=== PATIENT | female | born 1950 | race Caucasian/White ===

== ENCOUNTER 2017-04-20 18:37 | Inpatient (IN) | payer MEDICAID, MEDICARE ==
--- NOTE | 2017-04-20 19:20 | ED Physician Chart ---
ED Chief Complaint/HPI - Patient Information Date Seen:: 04/20/17 Time Seen:: 18:42 Chief Complaint:: confusion History of Present Illness:: THIS IS A 66 YO FEMALE SENT TO ER AN EVALUATION AND TREATMENT FOR HER PERIODS OF CONFUSION. SHE HAD COPD, HTN, ARTHRITIS, AND CVA. Allergies:: Allergies Allergy/AdvReac Type Severity Reaction Status Date / Time carbamazepine [From Tegretol] Allergy Verified 04/20/17 18:43 lactose Allergy Verified 04/20/17 18:44 Vitals:: Vital Signs - 8 hr 04/20/17 18:39 Temp 97.8 F HR 74 RR 16 BP 117/65 O2 Sat % 98 Historian:: Medical Records Review:: Nurse's Note Reviewed, Old Chart Reviewed, Transfer documents Reviewed ED Review of Systems - Review of Systems General/Constitutional: No fever, No chills, No weight loss, No weakness, No diaphoresis, No edema, No loss of appetite, Other (THIS PATIENT IS TOO CONFUSED TO GIVE A REVIEW OF SYSTEMS) Skin: No skin lesions, No rash, No bruising Head: No headache, No light-headedness Eyes: No loss of vision, No pain, No diplopia ENT: No earache, No nasal drainage, No sore throat, No tinnitus Neck: No neck pain, No swelling, No thyromegaly, No stiffness, No mass noted Cardio Vascular: No chest pain, No palpitations, No PND, No orthopnea, No edema Pulmonary: No SOB, No cough, No sputum, No wheezing GI: No nausea, No vomiting, No diarrhea, No pain, No melena, No hematochezia, No constipation, No hematemesis G/U: No dysuria, No frequency, No hematuria Musculoskeletal: No bone or joint pain, No back pain, No muscle pain Endocrine: No polyuria, No polydipsia Psychiatric: No prior psych history, No depression, No anxiety, No suicidal ideation Hematopoietic: No bruising, No lymphadenopathy Allergic/Immuno: No urticaria, No angioedema Neurological: No syncope, No focal symptoms, No weakness, No paresthesia, No headache, No seizure, No dizziness, No confusion, No vertigo ED Past Medical History - Past Medical History Obtainable: Yes Past Medical History: HTN, Asthma/COPD, CVA/TIA, Dyslipidemia, Arthritis, Dementia Family History: None Social History: Smoker, No Alcohol, No Drug Use, Care Facility Surgical History: other (SHOULDER SURGERY) Psychiatricy History: Dementia Family Medical History - Family Member Father History Unknown: Yes Ethnicity: Non- Living Status: ED Physical Exam - Physical Examination General/Constitutional: Awake, Well-developed, well-nourished, Alert, No distress, GCS 15, Non-toxic appearing, Ambulatory Other Gen/Cons comments:: CONFUSED Head: Atraumatic Eyes: Lids, conjuctiva normal, PERRL, EOMI Skin: Nl inspection, No rash, No skin lesions, No ecchymosis, Well hydrated, No lymphadenopathy ENMT: External ears, nose nl, Nasal exam nl, Lips, teeth, gums nl Neck: Nontender, Full ROM w/o pain, No JVD, No nuchal rigidity, No bruit, No mass, No stridor Respiratory: Nl effort/Exclusion Other Respiratory comments:: BILATERAL DECREASE EXCURSION OF THE DIAPHRAGMS WITH BILATERAL WHEEZING AND RHONCHI Cardio Vascular: No murmur, gallop, rubs, NL S1 S2 Other Cardio Vascular comments:: SLOW RATE 44 TO 50 RATE GI: No tenderness/rebounding/guarding, No organomegaly, No hernia, Normal BS's, Nondistended, No mass/bruits, No McBurney tenderness : No CVA tenderness Extremities: No tenderness or effusion, Full ROM, normal strength in all extremities, No edema, Normal digits & nails Neuro/Psych: Alert/oriented, DTR's symmetric, Normal sensory exam, Normal motor strength, Judgement/insight normal, Mood normal, Normal gait, No focal deficits Misc: normal gait, Normal back, No paraspinal tenderness ED Labs/Radiology/EKG Results - Lab Results Results: Abnormal Lab Results 04/20/17 04/20/17 04/20/17 19:15 19:15 19:15 WBC 9.6 RBC 3.66 L Hgb 11.5 L Hct 34.4 L MCV 94.1 MCH 31.6 H MCHC Differential 33.5 RDW 13.2 Plt Count 186 MPV 9.5 Neutrophils % 63.8 Lymphocytes % 18.5 L Monocytes % 13.6 H Eosinophils % 3.9 Basophils % 0.2 Sodium 137 Potassium 2.8 L* Chloride 105 Carbon Dioxide 26.6 Anion Gap 8.2 BUN 11 Creatinine 0.7 Est GFR ( Amer) > 60.0 Est GFR (Non-Af Amer) > 60.0 BUN/Creatinine Ratio 15.7 Glucose 90 Calcium 8.6 Total Bilirubin 0.2 L AST 11 L ALT 6 L Alkaline Phosphatase 58 Troponin I 0.01 Total Protein 5.8 L Albumin 3.4 L Globulin 2.4 Albumin/Globulin Ratio 1.4 - Radiology Results Results: CHEST X-RAY = FIBROTIC LUNGS - EKG Interpretations EKG Time:: 19:09 Rate & Rhythm: RATE =51,SINUS EMERITA [place]: RIGHT AXIS ED Assessment - Assessment General Assessment: SYMPTOMATIC BRADYCARDIA ED Septic Shock - . Is Septic Shock (SBP<90, OR Lactate>4 mmol\L) present?: No - <6hrs of presentation: Vital Signs: Vital Signs - 8 hr 04/20/17 18:39 Temp 97.8 F HR 74 RR 16 BP 117/65 O2 Sat % 98 ED Reassessment (Disposition) - Reassessment Reassessment Condition:: Unchanged - Diagnosis Diagnosis:: SYMPTOMATIC BRADYCARDIA HYPOKALEMIA ANEMIA FIBROTIC LUNG DISEASE - Patient Disposition Discharge/Transfer:: Acute Care w/in this hosp Admitted to:: Telemetry Admitting Medical Physician:: Tal Dooley Condition at Disposition:: Unchanged ED Discharge Plan - Patient Disposition Admit/Discharge/Transfer: Acute Care w/in this hosp Condition at Disposition: Unchanged Instructions: Psychosis
[2017-04-20 19:25] LABS: % BASOPHILS 0.2 % (0.0-2.0); % EOSINOPHILS 3.9 % (0.0-5.0); % LYMPHOCYTES 18.5 % (20.0-50.0); % MONOCYTES 13.6 % (2.0-10.0); % NEUTROPHILS 63.8 % (40.0-80.0); HEMATOCRIT 34.4 % (41.0-60); HEMOGLOBIN 11.5 gm/dL (12-16); MEAN CELL VOLUME 94.1 fl (81-100); MEAN CORPUSCULAR HEMOGLOBIN 31.6 pg (27.0-31.0); MEAN CORPUSCULAR HGB CONC 33.5 pg (28.0-36.0); MEAN PLATELET VOLUME 9.5 fl; NEUTROPHILE ABSOLUTE 6.1 Th/cmm (1.8-8.0); PLATELET COUNT 186 Th/cmm (150-400); RED BLOOD COUNT 3.66 Mil/cmm (3.80-5.20); RED CELL DISTRIBUTION WIDTH 13.2 % (11.5-20.0); WHITE BLOOD COUNT 9.6 Th/cmm (4.8-10.8)
[2017-04-20 19:37] LABS: ALB/GLOB RATIO 1.4 (1.0-1.8); ALKALINE PHOSPHATASE 58 U/L (34-104); ANION GAP 8.2 (7.0-16.0); BILIRUBIN,TOTAL 0.2 mg/dL (0.3-1.0); BUN - UREA NITROGEN 11 mg/dL (7-25); BUN/CREATININE RATIO 15.7; CALCIUM SERUM 8.6 mg/dL (8.6-10.3); CARBON DIOXIDE 26.6 mEq/L (21.0-31.0); CHLORIDE 105 mEq/L (98-107); CREATININE - SERUM 0.7 mg/dL (0.6-1.2); GLUCOSE 90 mg/dL (70-105); SGOT 11 U/L (13-39); SGPT/ALT 6 U/L (7-52); SODIUM SERUM 137 mEq/L (136-145)
[2017-04-20] MEDS ORDERED: Potassium Chloride Elixir 20 mEq /15 mL UDC PO ONE ×2 (19:47→19:48)
[2017-04-20 19:49] LABS: POTASSIUM SERUM 2.8 mEq/L (3.5-5.1)
[2017-04-20] MEDS ORDERED: Potassium Chloride Elixir 20 mEq /15 mL UDC ONE (19:51)
[2017-04-20] MEDS ORDERED: Albuterol/Ipratropium Neb 3 ML AERS HHN PRN ×2 (21:41→21:46)
[2017-04-20] MEDS ORDERED: Hydrocodone/APAP 5mg/325mg Tab PO PRN (21:41)
[2017-04-21] MEDS ORDERED: Albuterol/Ipratropium Neb 3 ML AERS HHN SCH
[2017-04-21] MEDS: Albuterol/Ipratropium Neb 3 ML AERS HHN SCH ×4 (00:06→19:12)
[2017-04-21 05:00] VITALS: BP 141/72
[2017-04-21 06:48] LABS: % BASOPHILS 0.2 % (0.0-2.0); % EOSINOPHILS 0.2 % (0.0-5.0); % LYMPHOCYTES 13.4 % (20.0-50.0); % MONOCYTES 5.1 % (2.0-10.0); % NEUTROPHILS 81.1 % (40.0-80.0); HEMOGLOBIN 12.7 gm/dL (12-16); MEAN CELL VOLUME 94.6 fl (81-100); MEAN CORPUSCULAR HEMOGLOBIN 30.9 pg (27.0-31.0); MEAN CORPUSCULAR HGB CONC 32.6 pg (28.0-36.0); MEAN PLATELET VOLUME 11.5 fl; NEUTROPHILE ABSOLUTE 4.8 Th/cmm (1.8-8.0); RED BLOOD COUNT 4.12 Mil/cmm (3.80-5.20); RED CELL DISTRIBUTION WIDTH 13.3 % (11.5-20.0)
[2017-04-21 06:51] LABS: HEMATOCRIT 38.9 % (41.0-60); PLATELET COUNT 234 Th/cmm (150-400); WHITE BLOOD COUNT 5.9 Th/cmm (4.8-10.8)
[2017-04-21 07:20] LABS: ANION GAP 9.1 (7.0-16.0); BUN - UREA NITROGEN 11 mg/dL (7-25); BUN/CREATININE RATIO 18.3; CALCIUM SERUM 8.8 mg/dL (8.6-10.3); CARBON DIOXIDE 25.6 mEq/L (21.0-31.0); CHLORIDE 105 mEq/L (98-107); CREATININE - SERUM 0.6 mg/dL (0.6-1.2); GLUCOSE 134 mg/dL (70-105); POTASSIUM SERUM 3.7 mEq/L (3.5-5.1); SODIUM SERUM 136 mEq/L (136-145)
[2017-04-21] MEDS ORDERED: Potassium Chloride 20 mEq ER Tab PO SCH (09:00)
[2017-04-21] MEDS ORDERED: VALSARTAN 160 MG PO SCH (09:00)
[2017-04-21] MEDS ORDERED: Pantoprazole 40 mg EC Tab PO SCH (09:00)
[2017-04-21] MEDS ORDERED: FERROUS SULFATE PO SCH (09:00)
--- NOTE | 2017-04-21 09:09 | Diagnostic Imaging Report ---
CHEST X-RAY: AP view INDICATION: Cough COMPARISON: None FINDINGS: Increased interstitial lung markings are noted. There is no focal consolidation or pleural effusions The heart is normal in size. Degenerative changes of the spine are seen with scoliosis. Degenerative changes and Deformity of the bilateral shoulders and humeral heads are noted. IMPRESSION: Increased interstitial lung markings favoring chronic lung changes. No focal consolidation or evidence of romeo CHF. Degenerative changes.
[2017-04-21] MEDS: Potassium Chloride 20 mEq ER Tab PO SCH (09:41)
[2017-04-21] MEDS: Pantoprazole 40 mg EC Tab PO SCH (09:41)
[2017-04-21] MEDS: Ferrous Sulfate 325 MG TAB PO SCH ×2 (09:42→16:35)
--- NOTE | 2017-04-21 11:39 | History & Physical ---
ADMIT DATE: 04/21/2017 PHYSICIAN REQUESTING CONSULTATION: Dr. Greg Pritchard. CHIEF COMPLAINT: Confusion and agitation. HISTORY OF PRESENT ILLNESS: This patient is a 66-year-old woman, resident of ____ [place]. The patient has been noted to be very confused and getting easily agitated and hence the patient has been referred to the hospital. At the time of the evaluation, the patient is reported noted to be very lethargic and her potassium and WBC noted to be very low. The patient is admitted to the medical unit for stabilization. A psychiatric consultation is called to address the issue of the confusion and agitation. Chart is reviewed. The patient is interviewed. Review of the chart indicated that the patient has been on Paxil 20 mg on a daily basis and mirtazapine 15 mg at bedtime. With Risperdal 0.5 mg at bedtime and the patient is also on Trileptal and gabapentin. The patient at this time is noted to be very irritable and angry and is stating that she cannot recall anything and is not able to provide much of information, most of the information has to be obtained by reviewing the chart and talking to the staff members. The patient has been very upset for being in here. PAST PSYCHIATRIC HISTORY: Details are not known. MEDICAL HISTORY: Significant for the patient having history of COPD, hypercholesterolemia, arthritis, GERD and hypertension. The patient is being treated with Risperdal and Paxil at this time. SUBSTANCE ABUSE HISTORY: None. SOCIAL HISTORY: The patient is reporting that she has a daughter and she wants someone to inform the daughter. MENTAL STATUS EXAMINATION: The patient is a 66-year-old, looking older than her stated age, thin built, superficially cooperative. Eye contact is poor. Mood is noted to be irritable. Affect is constricted. The patient is getting easily frustrated. Insight and judgment at this time are noted to be impaired. Impulse control is noted to be poor. The patient is not fully aware that she is in the hospital in [place]. The patient, however, notes that she is 66 years of age, attention span and concentration are noted to be poor at this time. The patient's coping skills are noted to be very poor suicidal or homicidal ideation could not be elicited at this time. DIAGNOSTIC IMPRESSION: Major depressive disorder, recurrent and moderate. PLAN: To continue the patient with the Paxil and then discontinue the Remeron and decrease the dose on the Ativan and follow the patient with the supportive therapy. Thank you, Dr. Pritchard, for allowing me to participate in the care of the patient. JOB# [id number]
[2017-04-21] MEDS: Hydrocodone/APAP 5mg/325mg Tab PO PRN ×2 (14:05→21:50)
[2017-04-21] MEDS: cefTRIAXone 1 GM in Sodium Chloride 0.9% 50 ML IV SCH (18:34)
--- NOTE | 2017-04-21 21:13 | Consultation ---
DATE OF CONSULTATION: 04/21/2017 SUBJECTIVE: The patient is a 66-year-old male, who is coming from [place], has been noted to be confused, getting easily agitated and hence the patient has been referred to the hospital. This patient has been referred to be lethargic. Her potassium is relatively low and white blood cell noted to be low. This patient had very poor oral intake and nutrition for the last few days because of significant degree of agitation that this patient had. This patient is being seen in consultation because of electrolyte abnormality in the form of hypokalemia that this patient has. PAST MEDICAL HISTORY: Significant with the of COPD, hypercholesterolemia, arthritis, gastroesophageal reflux and hypertension. He has been previously on medications of Risperdal and Paxil at the present time. Substance abuse is negative. SOCIAL HISTORY: Noncontributory in the presence of the daughter who wants to be informed about the condition of her mother. OBJECTIVE: VITAL SIGNS: Blood pressure 132/74, temperature 97.8, pulse rate 71, and respiratory rate of 18. Lethargic. Appears to communicate at the present time. CHEST: Clear to auscultation. HEART: Regular sinus. ABDOMEN: Soft. Scaphoid There is no evidence of edema. EXTREMITIES: No edema both lower extremities. Dystrophic changes of no extremities were noted. LABORATORY DATA: This patient's white cells count is 5900, 12.7 hemoglobin and hematocrit of 38.3, and platelets of this patient is 234,000. 136 sodium, potassium 3.7, chloride 105, CO2 of 25.6, anion gap of 9.1, BUN of 11, creatinine of 0.6, glucose 134, calcium 8.3. Carbamazepine level is 2.0. Bilirubin of this patient is 0.2. Liver profile is with normal limits, although she has significant degree lower AST, ALT, and alkaline phosphatase. ASSESSMENT AND PLAN: 1. Hypokalemia secondary to inadequate oral intake of this patient. 2. Anorexia, significant in this patient with the patient having relatively lower albumin of 3.4, hypoalbuminemia might be related to nutritional intake of this patient, which is very poor. Encouraged nutrition, protein supplementation, while she is in the hospital. [facility]# [id number]
[2017-04-21] MEDS: Atorvastatin Calcium 10 MG TAB PO SCH (21:34)
[2017-04-22] MEDS: Albuterol/Ipratropium Neb 3 ML AERS HHN SCH ×5 (01:54→19:06)
[2017-04-22] MEDS: Pantoprazole 40 mg EC Tab PO SCH (09:45)
[2017-04-22] MEDS: Ferrous Sulfate 325 MG TAB PO SCH ×2 (09:45→16:20)
[2017-04-22] MEDS: Potassium Chloride 20 mEq ER Tab PO SCH (09:46)
[2017-04-22] MEDS: cefTRIAXone 1 GM in Sodium Chloride 0.9% 50 ML IV SCH (17:26)
--- NOTE | 2017-04-22 20:26 | Infectious Disease Prog Note ---
Infectious Disease Subjective - Review of Systems Service Date: 04/22/17 Subjective: cc uti hpi- pt on iv bax bp high norvasc startedros nofver o/e vs chest claer abd soft ext pulse dx debility uti rocephin Infectious Disease Objective - Results Result Diagrams: 04/21/17 06:05 04/21/17 06:05 Recent Labs: Laboratory Last Values WBC 5.9 Th/cmm (4.8-10.8) D 04/21/17 06:05 RBC 4.12 Mil/cmm (3.80-5.20) 04/21/17 06:05 Hgb 12.7 gm/dL (12-16) 04/21/17 06:05 Hct 38.9 % (41.0-60) L D 04/21/17 06:05 MCV 94.6 fl (81-100) 04/21/17 06:05 MCH 30.9 pg (27.0-31.0) 04/21/17 06:05 MCHC Differential 32.6 pg (28.0-36.0) 04/21/17 06:05 RDW 13.3 % (11.5-20.0) 04/21/17 06:05 Plt Count 234 Th/cmm (150-400) D 04/21/17 06:05 MPV 11.5 fl 04/21/17 06:05 Neutrophils % 81.1 % (40.0-80.0) H 04/21/17 06:05 Lymphocytes % 13.4 % (20.0-50.0) L 04/21/17 06:05 Monocytes % 5.1 % (2.0-10.0) 04/21/17 06:05 Eosinophils % 0.2 % (0.0-5.0) 04/21/17 06:05 Basophils % 0.2 % (0.0-2.0) 04/21/17 06:05 Sodium 136 mEq/L (136-145) 04/21/17 06:05 Potassium 3.7 mEq/L (3.5-5.1) 04/21/17 06:05 Chloride 105 mEq/L (98-107) 04/21/17 06:05 Carbon Dioxide 25.6 mEq/L (21.0-31.0) 04/21/17 06:05 Anion Gap 9.1 (7.0-16.0) 04/21/17 06:05 BUN 11 mg/dL (7-25) 04/21/17 06:05 Creatinine 0.6 mg/dL (0.6-1.2) 04/21/17 06:05 Est GFR ( Amer) > 60.0 ml/min (>90) 04/21/17 06:05 Est GFR (Non-Af Amer) > 60.0 ml/min 04/21/17 06:05 BUN/Creatinine Ratio 18.3 04/21/17 06:05 Glucose 134 mg/dL (70-105) H 04/21/17 06:05 Calcium 8.8 mg/dL (8.6-10.3) 04/21/17 06:05 Total Bilirubin 0.2 mg/dL (0.3-1.0) L 04/20/17 19:15 AST 11 U/L (13-39) L 04/20/17 19:15 ALT 6 U/L (7-52) L 04/20/17 19:15 Alkaline Phosphatase 58 U/L (34-104) 04/20/17 19:15 Troponin I 0.01 ng/mL (0.01-0.05) 04/20/17 19:15 Total Protein 5.8 gm/dL (6.0-8.3) L 04/20/17 19:15 Albumin 3.4 gm/dL (3.7-5.3) L 04/20/17 19:15 Globulin 2.4 gm/dL 04/20/17 19:15 Albumin/Globulin Ratio 1.4 (1.0-1.8) 04/20/17 19:15 TSH 2.35 uIU/ml (0.34-5.60) 04/20/17 19:15 Carbamazepine < 2.0 ug/ml (4.0-12.0) L 04/20/17 19:15 - Physical Exam Vitals and I&O: Vital Signs Temp 98.0 F 04/22/17 20:00 Pulse 66 04/22/17 20:00 Resp 18 04/22/17 20:00 BP 160/76 04/22/17 20:00 Pulse Ox 95 04/22/17 20:00 Intake & Output 04/22/17 04/22/17 04/23/17 06:59 18:59 06:59 Intake Total 400 500 Output Total 500 Balance 400 0 Weight (lbs) 46.266 kg 46.266 kg Intake: Oral 400 500 Output: Urine 500 Other: # Voids 3 # Bowel Movements 9 6 Active Medications: Current Medications Acetaminophen/Hydrocodone Bitart ([place] 5mg/325mg) 1 tab PO TID PRN PRN Reason: Pain (Mild) Stop: 06/19/17 21:57 Last Admin: 04/21/17 21:50 Dose: 1 tab Albuterol/Ipratropium (Duoneb Neb) 3 ml HHN Q2H PRN PRN Reason: Wheezing Stop: 06/19/17 21:45 Albuterol/Ipratropium (Duoneb Neb) 3 ml HHN Q6HRT GOOD Stop: 06/20/17 00:59 Last Admin: 04/22/17 19:06 Dose: Not Given Amlodipine Besylate (Norvasc) 2.5 mg PO BID GOOD Stop: 06/21/17 09:14 Last Admin: 04/22/17 16:20 Dose: 2.5 mg Atorvastatin Calcium (Lipitor) 40 mg PO HS GOOD PRN Reason: Protocol Stop: 06/20/17 20:59 Last Admin: 04/21/17 21:34 Dose: 40 mg Ferrous Sulfate (Iron) 325 mg PO BID GOOD Stop: 06/20/17 08:59 Last Admin: 04/22/17 16:20 Dose: 325 mg Gabapentin (Neurontin) 200 mg PO TID GOOD Stop: 06/20/17 08:59 Last Admin: 04/22/17 14:20 Dose: 200 mg Ceftriaxone Sodium 1 gm/ (Sodium Chloride) 50 mls @ 100 mls/hr IV Q24HR GOOD Stop: 06/20/17 17:59 Last Admin: 04/22/17 17:26 Dose: Not Given Loperamide HCl (Imodium) 2 mg PO TID PRN PRN Reason: Diarrhea Stop: 06/19/17 21:57 Last Admin: 04/22/17 16:20 Dose: 2 mg Lorazepam (Ativan) 0.5 mg PO TID PRN; Protocol PRN Reason: Agitation Stop: 06/19/17 21:57 Last Admin: 04/22/17 16:20 Dose: 0.5 mg Metronidazole (Flagyl) 250 mg PO QID GOOD Stop: 06/21/17 16:59 Last Admin: 04/22/17 16:20 Dose: 250 mg Oxcarbazepine (Trileptal) 300 mg PO BID GOOD PRN Reason: Protocol Stop: 06/20/17 08:59 Last Admin: 04/22/17 17:26 Dose: Not Given Pantoprazole Sodium (Protonix) 40 mg PO DAILY GOOD Stop: 06/20/17 08:59 Last Admin: 04/22/17 09:45 Dose: 40 mg Paroxetine HCl (Paxil) 20 mg PO DAILY GOOD PRN Reason: Protocol Stop: 06/20/17 08:59 Last Admin: 04/22/17 09:45 Dose: 20 mg Potassium Chloride (Klor-Con) 40 meq PO DAILY GOOD Stop: 06/20/17 08:59 Last Admin: 04/22/17 09:46 Dose: 40 meq Risperidone (Risperdal) 0.5 mg PO HS GOOD PRN Reason: Protocol Stop: 06/20/17 20:59 Valsartan (Diovan) 160 mg PO DAILY GOOD Stop: 06/20/17 08:59 Last Admin: 04/22/17 09:45 Dose: 160 mg
[2017-04-22] MEDS: Atorvastatin Calcium 10 MG TAB PO SCH (20:52)
--- NOTE | 2017-04-23 01:26 | Progress Notes ---
DATE: 04/22/2017 SUBJECTIVE: Staff was spoken to. The patient is interviewed. Mood is noted to be irritable. Affect is constricted. The patient is still having mood swings. Insight and judgment are noted to be still impaired. Impulse control seems to be poor. Coping skills are also noted to be poor. The patient has been having difficult time to cope with the stress. No side effects to the medications are noted. ASSESSMENT: The patient is still depressed and having mood swings. PLAN: To continue the patient with supportive therapy and follow. JOB# [id number]
[2017-04-23] MEDS: Albuterol/Ipratropium Neb 3 ML AERS HHN SCH ×2 (01:42→07:22)
--- NOTE | 2017-04-23 04:36 | Consultation ---
DATE OF H and P CONSULTATION: 04/20/2017 PRIMARY PHYSICIAN: Dr. Dooley. HISTORY OF PRESENT ILLNESS: This 66-year-old female was brought to the Emergency Room with complaint of altered mental status. The patient became very lethargic and the patient lives in board and care as noticed by staff. The patient started having confusion and was brought to Emergency Room for evaluation. The patient was found to have bradycardia, hypokalemia, and was admitted to the hospital. Admission orders reviewed. Cardiology and renal consultation called. Also psych consult, Dr. Hines, requested. The patient was unable to provide meaningful history. Discussed with the staff at bedside. care home documents reviewed. Labs ordered. Discussed with the ER staff. PAST MEDICAL HISTORY: Hypertension, COPD, dementia, psychosis, dyslipidemia, arthritis, occasional smoker. Past history of CVA. PAST SURGICAL HISTORY: Shoulder surgery longtime back. ALLERGIES: LACTOSE AND TEGRETOL. FAMILY HISTORY: Negative. REVIEW OF SYSTEMS: A 14-point review of systems negative. No fall, trauma, seizures, HIV, or hepatitis. Rest of the review of systems negative. PHYSICAL EXAMINATION: GENERAL: The patient is an elderly female, unable to respond appropriately, opens her eye on touch, not following any verbal commands. The patient is lethargic. VITAL SIGNS: Temperature is 97.8, pulse 74, respirations 16, and blood pressure 117/65. HEENT: Mild pallor. No icterus. Pupils are reactive to light. NECK: Supple. LUNGS: Breath sounds bilateral vesicular. CARDIOVASCULAR: Decreased S1, S2. ABDOMEN: Soft and nontender. Bowel sounds present. NEUROLOGIC: No thyroid, no cervical lymph nodes. LABORATORY DATA: White count is 9000, hemoglobin is 11 g, platelets 186, creatinine is 0.7, potassium 2.8. Troponin 0.01. Chest x-ray shows fibrotic changes versus infiltrates. EKG shows sinus bradycardia. Also, chest x-ray reviewed. The patient has increased lung markings without any CHF or consolidation and degenerative joint disease present. DIAGNOSES: 1. Chronic obstructive pulmonary disease. 2. Hypertension. 3. History of cerebrovascular accident. 4. Altered mental status secondary to multiple factors. PLAN: Supplemented with potassium. Restart home medication. Cardiology and renal evaluation, supportive care. Thank you Dr. Dooley, for referral. JOB# [id number] [facility] CENTERMichelle
[2017-04-23 06:19] LABS: BUN - UREA NITROGEN 12 mg/dL (7-25); CALCIUM SERUM 9.5 mg/dL (8.6-10.3); CARBON DIOXIDE 19.6 mEq/L (21.0-31.0); CHLORIDE 107 mEq/L (98-107); CREATININE - SERUM 0.6 mg/dL (0.6-1.2); GLUCOSE 96 mg/dL (70-105); POTASSIUM SERUM 3.6 mEq/L (3.5-5.1); SODIUM SERUM 138 mEq/L (136-145)
[2017-04-23] MEDS: Hydrocodone/APAP 5mg/325mg Tab PO PRN ×2 (06:32→09:44)
--- NOTE | 2017-04-23 06:43 | Consultation ---
DATE OF CONSULTATION: 04/20/2017 HISTORY OF PRESENT ILLNESS: This 66-year-old female was seen and examined at the courtesy of Dr. Arjun Pritchard. The patient was admitted here with sinus bradycardia. A consult was called regarding sinus bradycardia. Not much history available from the patient. Does have history of hypertension. She was also found to have UTI. Did not complain of any chest pain, shortness of breath. No history of dizziness or syncope. On her EKG, it showed sinus bradycardia with complete right bundle branch block and left axis bifascicular block. Heart rate ranged between 45-60. PAST MEDICAL HISTORY: Usual childhood disease, not much available. REVIEW OF SYSTEMS: Not much available from the patient. SOCIAL HISTORY: Denies smoking or drinking. PHYSICAL EXAMINATION: VITAL SIGNS: Heart rate was 48, blood pressure was 163/73, temperature 97.4, respirations 20. SKIN: Normal. HEAD: Normocephalic. EYES: Conjunctivae were pink. There is no icterus in the eyes. Pupils reacting to light. NECK: There was no increased jugular venous distention, no thyromegaly, no lymphadenopathy. Carotids equal both sides. CHEST: Bilaterally symmetrical. Moves well with respiration. Respiratory movements equal both sides. Trachea is central. There is note to percussion. Breath sounds, few scattered rales. CARDIOVASCULAR SYSTEM: PMI not well localized. There is no pulsation or thrill. No parasternal heave. S1 normal, S2 physiologic. There was no S3, no rub. ABDOMEN: Soft, no tenderness, no rigidity, no guarding and no organomegaly. Bowel sounds normal. EXTREMITIES: No edema, no calf tenderness. Peripheral pulses diminished. LABORATORY DATA: On reviewing the labs sodium was 136, potassium 3.7, chloride 105, CO2 25.6, glucose 134. BUN 11, creatinine 0.6, calcium was 8.8. On admission, potassium was low, which has been corrected. WBC count was 9.6, hemoglobin 11.5, hematocrit 34.4, platelet count was 186. Troponin was 0.01. TSH was 2.35. EKG has showed bifascicular block as mentioned above. IMPRESSION: Sinus bradycardia, with apparently no hemodynamic compromise; hypertension; complete right bundle branch block, and left axis ____ EKG, urinary tract infection. PLAN: The patient is on valsartan and Norvasc 2.5. We will discontinue the Norvasc, put her on Procardia-XL 30 along with valsartan, and also to continue Lipitor. If the blood pressure remains high then the dose of valsartan may be increased. JOB# [id number]
[2017-04-23] MEDS ORDERED: NIFEdipine 30 mg ER Tab PO SCH (09:00)
[2017-04-23] MEDS: Pantoprazole 40 mg EC Tab PO SCH (09:20)
[2017-04-23] MEDS: Ferrous Sulfate 325 MG TAB PO SCH (09:20)
[2017-04-23] MEDS: Potassium Chloride 20 mEq ER Tab PO SCH (09:21)
--- NOTE | 2017-04-23 20:41 | Discharge Summary ---
DATE OF DISCHARGE: 04/23/2017 ADMISSION DIAGNOSES: Chronic obstructive pulmonary disease, bronchitis, and possible pneumonia. DISCHARGE DIAGNOSES: Chronic obstructive pulmonary disease, bronchitis, possible pneumonia, hypertension, and history of cerebrovascular accident. HOSPITAL COURSE: This is an elderly female who was brought to the Emergency Room with complaint of altered mental status. The patient was found to have bradycardia, hypokalemia, and decreased appetite. The patient also has psychosis and was seen by Renal, Psych, and Cardiology. The patient started on fluids. Workup shows pneumonia, started on antibiotics, and stabilized and transferred to [facility] under Dr. Dooley. During hospitalization, the patient's labs were white count 5,000, hemoglobin was 12 grams, and platelets 234,000. Stool culture negative. MRSA screening negative. The patient was treated with amlodipine, Lipitor, Rocephin, iron, loperamide, and Flagyl. INSTRUCTION ON DISCHARGE: To continue same medication under the care of Dr. Dooley. Activity as tolerated. PT/OT eval and 2 g sodium, low-cholesterol diet. JOB# [id number]
== END 2017-04-23 13:00 | DRG 190 ==
LOC: ER 18:37 → TELE 20:25
PROVIDERS: ADMIT Internal Medicine Infectious Disease; ATTEND Internal Medicine Infectious Disease
DX: J44.0 Chronic obstructive pulmonary disease with (acute) lower respiratory infection (principal); J18.9 Pneumonia, unspecified organism; F03.90 Unspecified dementia, unspecified severity, without behavioral disturbance, psychotic disturbance, mood disturbance, and anxiety; F33.1 Major depressive disorder, recurrent, moderate; J84.10 Pulmonary fibrosis, unspecified; N39.0 Urinary tract infection, site not specified; Z68.1 Body mass index [BMI] 19.9 or less, adult; I45.2 Bifascicular block; I45.10 Unspecified right bundle-branch block; R00.1 Bradycardia, unspecified; E87.6 Hypokalemia; F29 Unspecified psychosis not due to a substance or known physiological condition; I10 Essential (primary) hypertension; E78.5 Hyperlipidemia, unspecified; M19.90 Unspecified osteoarthritis, unspecified site; F17.210 Nicotine dependence, cigarettes, uncomplicated; R63.0 Anorexia; D64.9 Anemia, unspecified; K21.9 Gastro-esophageal reflux disease without esophagitis; Z86.73 Personal history of transient ischemic attack (TIA), and cerebral infarction without residual deficits; Z88.8 Allergy status to other drugs, medicaments and biological substances
CPT/HCPCS: 36415-UA; 71010-TC; 80048-TC; 80053-TC; 80156-TC; 84443-TC; 84484-TC; 85025-TC; 87230-TC; 93005; 94640; 94760; J0696; J2930; Z7610